=== PATIENT | female | born 1980 | race Caucasian/White ===

== ENCOUNTER 2022-10-06 02:24 | Emergency (ER) | payer OTHER ==
[2022-10-06] MEDS ORDERED: ONDANSETRON 4 MG/2 ML VIAL IVPUSH ONE (02:25)
[2022-10-06] MEDS ORDERED: LORazepam 2 MG/ML SDV VIAL IVPUSH ONE (02:25)
[2022-10-06] MEDS ORDERED: LACTATED RINGERS SOLUTION 1000 ML INFUS.BAG IV ONE (02:25)
[2022-10-06 02:36] VITALS: BP 129/64; PULSE 85; RESP 24; BMI 23.1
== END 2022-10-06 05:03 | disposition home or self-care (01) ==
LOC: JER 02:24
PROC: 3E033NZ Introduction of Analgesics, Hypnotics, Sedatives into Peripheral Vein, Percutaneous Approach (ICD-10-PCS; principal; 2022-10-06)
PROC: 3E033GC Introduction of Other Therapeutic Substance into Peripheral Vein, Percutaneous Approach (ICD-10-PCS; 2022-10-06)
DX: F12.188 Cannabis abuse with other cannabis-induced disorder (principal); R11.2 Nausea with vomiting, unspecified
CPT/HCPCS: 99284-25

== ENCOUNTER 2023-07-12 00:39 | Emergency (ER) | payer OTHER ==
[2023-07-12 00:53] VITALS: BP 152/58; RESP 22; TEMP 97.6; BMI 25.0
[2023-07-12] MEDS ORDERED: ALPRAZolam 0.25 MG TABLET PO PRN (01:13)
[2023-07-12] MEDS ORDERED: ALPRAZolam 0.25 MG TABLET PO ONE (02:14)
[2023-07-12 02:20] LABS: BASO % 0.5 % (0-2.0); EOS % 2.2 % (0-4.5); HEMATOCRIT 40.8 % (32.4-45.2); HEMOGLOBIN 14.1 GM/dL (10.7-15.3); LYMPH % 28.9 % (8-40); MCHC 34.6 g/dl (32.0-36.0); MEAN CELL VOLUME 95.5 fl (80-96); MEAN PLT VOLUME 7.7 fl (7.5-11.1); NEUT % 61.4 % (42.8-82.8); PLATELET COUNT 336 10^3/uL (134-434); RBC 4.27 M/mm3 (3.60-5.2); WHITE BLOOD COUNT 5.8 K/mm3 (4.0-10.0)
[2023-07-12 02:29] LABS: POTASSIUM 4.1 mmol/L (3.5-5.1)
[2023-07-12 02:31] LABS: ALBUMIN 3.8 g/dl (3.4-5.0); CALCIUM 8.8 mg/dL (8.5-10.1)
[2023-07-12 02:32] LABS: BLOOD UREA NITROGEN 15.1 mg/dL (7-18); MAGNESIUM 2.1 mg/dL (1.8-2.4)
[2023-07-12 02:34] LABS: CREATININE 0.8 mg/dL (0.55-1.3)
[2023-07-12 02:36] LABS: TOT PROT 7.2 g/dl (6.4-8.2)
[2023-07-12 02:41] VITALS: PULSE 86
[2023-07-12] MEDS ORDERED: ALPRAZolam 0.25 MG TABLET ONE ×2 (02:43→02:46)
[2023-07-12 02:52] LABS: BILIRUBIN,TOTAL 0.3 mg/dL (0.2-1)
== END 2023-07-12 03:44 | disposition home or self-care (01) ==
LOC: JER 00:39
DX: R94.6 Abnormal results of thyroid function studies (principal); R07.89 Other chest pain; R40.0 Somnolence; T43.205A Adverse effect of unspecified antidepressants, initial encounter
CPT/HCPCS: 36415; 80053; 82550; 83735; 84439; 84443; 84484; 84703; 85025; 93005; 93010; 99284-25

== ENCOUNTER 2023-07-15 01:19 | Emergency (ER) | payer OTHER ==
[2023-07-15 01:28] VITALS: BP 139/90; PULSE 103; RESP 20; TEMP 97.7; BMI 25.0
[2023-07-15] MEDS ORDERED: LORazepam 2 MG TABLET PO ONE (02:23)
[2023-07-15] MEDS ORDERED: LORazepam 1 MG TABLET ONE (02:26)
== END 2023-07-15 02:36 | disposition home or self-care (01) ==
LOC: JER 01:19
DX: R07.9 Chest pain, unspecified (principal)
CPT/HCPCS: 93005; 93010; 99283-25

== ENCOUNTER 2024-03-14 11:05 | Day surgery (SDC) | payer OTHER ==
[2024-03-11 12:18] VITALS: BMI 29.7
[2024-03-14 11:30] VITALS: PULSE 71; RESP 16; TEMP 97.9
[2024-03-14] MEDS ORDERED: PROPOFOL 40 ML ONE (12:01)
[2024-03-14 12:36] VITALS: BP 119/48
== END 2024-03-14 12:50 | disposition home or self-care (01) ==
LOC: FASU-ENDO 11:05
PROVIDERS: ATTEND Internal Medicine Gastroenterology
PROC: 0DJD8ZZ Inspection of Lower Intestinal Tract, Via Natural or Artificial Opening Endoscopic (ICD-10-PCS; principal; 2024-03-14 11:59)
DX: Z12.11 Encounter for screening for malignant neoplasm of colon (principal); K64.1 Second degree hemorrhoids
CPT/HCPCS: 81025